=== PATIENT | male | born 1980 | race Caucasian/White ===

== ENCOUNTER 2017-11-04 14:49 | Emergency (ER) | payer SELFPAY ==
[~2017-11-04] VITALS: Ht 180.3 cm; Wt 78.0 kg
[2017-11-04 14:57] VITALS: BP 135/75; PULSE 93; RESP 17; TEMP 97.5; O2SAT 99
[2017-11-04] MEDS ORDERED: IBUP1TAB7 PO (15:15)
[2017-11-04] MEDS ORDERED: PENI500T PO (15:15)
[2017-11-04] MEDS ORDERED: MAGICADU2 SWISH-SPIT (15:15)
--- NOTE | 2017-11-04 15:19 | PD ---
HPI Chief Complaint: Oral / Dental Pain or Problem Time Seen by Provider: 15:02 Travel History International Travel<30 days: No Contact w/Intl Traveler<30days: No Traveled to known affect area: No History of Present Illness HPI 37-year-old male presents emergency department with pain in the left lower jaw for the past several days. He has had dental issues in the past and this is similar. He has increased pain and swelling under the left first lower molar. This is been ongoing for the 4 days. He has been taking ddlj-vzv-wkvplut medications without improvement. Pain is worsened with pain extending into the ear and cheek. He denies difficulty swallowing. No fever, chills, or drainage. Pain is currently 8 out of 10. He has no known drug allergies. PFSH Past Medical History Medical History: Denies Significant Hx Diminished Hearing: No Respiratory: Yes Immunizations Current: Yes Past Surgical History Surgical History: No Previous Surgery Social History Alcohol Use: Yes (Daily) Tobacco Use: Yes (1 pdd) Substance Use: No Allergies-Medications (Allergen,Severity, Reaction): Coded Allergies: No Known Allergies (Unverified Adverse Reaction, Unknown, 11/04/17) Per pt. Reported Meds & Prescriptions Reported Meds & Active Scripts Active Magic Mouthwash Adult Liq (Multi-Ingredient Mouthwash/Gargle) 120 Ml Susp 10 Ml SWISH-SPIT Q2HR Each 5mL contains: Nystatin 200,000units, Diphenhydramine 4.25mg, Viscous Lidocaine 10mg, [place] syrup 0.8 mL Penicillin V Potassium 500 Mg Tab 500 Mg PO Q6H 10 Days Ibuprofen 800 Mg Tab 800 Mg PO Q8H PRN Review of Systems Except as stated in HPI: all other systems reviewed are Neg General / Constitutional: No: Fever Eyes: No: Visual changes HENT: Positive: Dental Difficulties, Earache, No: Headaches, Vertigo, Lightheadedness, Sore Throat, Rhinitis, Rhinorrhea, Congestion, Nosebleed, Neck Stiffness, Neck Pain Cardiovascular: No: Chest Pain or Discomfort Respiratory: No: Shortness of Breath Gastrointestinal: No: Abdominal Pain Genitourinary: No: Dysuria Musculoskeletal: No: Pain Skin: No Rash Neurologic: No: Weakness Psychiatric: No: Depression Endocrine: No: Polydipsia Hematologic/Lymphatic: No: Easy Bruising Physical Exam Narrative GENERAL: Patient appears in mild distress per SKIN: Warm and dry. Normal color. Normal turgor. No rash. HEAD: Atraumatic. Normocephalic. EYES: Pupils equal and round. No scleral icterus. No injection or drainage. ENT: No nasal bleeding or discharge. Mucous membranes pink and moist. TMs are clear bilaterally. Teeth are in poor repair with localized pain and tenderness at the base of the first molar on the left lower jaw. No major abscesses noted. No Jl's angina. Pharynx is clear. Airways patent. NECK: Trachea midline. Supple and nontender without significant lymphadenopathy. CARDIOVASCULAR: Regular rate and rhythm. RESPIRATORY: No accessory muscle use. Clear to auscultation. Breath sounds equal bilaterally. MUSCULOSKELETAL: Extremities without clubbing, cyanosis, or edema. No obvious deformities. NEUROLOGICAL: Awake and alert. No obvious cranial nerve deficits. Motor grossly within normal limits. Five out of 5 muscle strength in the arms and legs. Normal speech. PSYCHIATRIC: Appropriate mood and affect; insight and judgment normal. Data Data Last Documented VS Vital Signs Date Time Temp Pulse Resp B/P (MAP) Pulse Ox O2 Delivery O2 Flow Rate FiO2 11/04/17 14:57 97.5 93 17 135/75 (95) 99 MDM Medical Decision Making Medical Screen Exam Complete: Yes Emergency Medical Condition: Yes Differential Diagnosis Dental caries. Dental abscess. Dental pain Narrative Course Patient is given Pen-Vee K 500 mg 4 times daily 10 days. Patient is given ibuprofen 800 mg 3 times daily with food #30. Patient is given Magic mouthwash to be used every 2 hours as needed #120 mL's. Dental resource information is given to the patient for follow-up. Diagnosis Primary Impression: Dental abscess Referrals: Dentist Patient Instructions: Dental Abscess (ED), General Instructions Additional Instructions: Patient is given Pen-Vee K 500 mg 4 times daily 10 days. Patient is given ibuprofen 800 mg 3 times daily with food #30. Patient is given Magic mouthwash to be used every 2 hours as needed #120 mL's. Dental resource information is given to the patient for follow-up. Med/Other Pt SpecificInfo: Prescription(s) given Scripts Efijwyfc-Htynsciaxhmufgt-Qojgopsko Liq (Magic Mouthwash Adult Liq) 120 Ml Susp 10 ML SWISH-SPIT Q2HR for Mouth sores, #120 ML 0 Refills Each 5mL contains: Nystatin 200,000units, Diphenhydramine 4.25mg, Viscous Lidocaine 10mg, [place] syrup 0.8 mL Prov: Migue Nixon MD 11/04/17 Penicillin V Potassium (Penicillin V Potassium) 500 Mg Tab 500 MG PO Q6H for Infection for 10 Days, #40 TAB 0 Refills Prov: Migue Nixon MD 11/04/17 Ibuprofen (Ibuprofen) 800 Mg Tab 800 MG PO Q8H Y for Pain/Inflammation, #30 TAB 0 Refills Prov: Migue Nixon MD 11/04/17 Disposition: 01 DISCHARGE HOME Condition: Stable Chris Martin Nov 04, 2017 15:19
== END 2017-11-04 15:33 | disposition home or self-care (01) ==
LOC: NEPK 14:49
DX: K04.7 Periapical abscess without sinus (principal); F17.200 Nicotine dependence, unspecified, uncomplicated
CPT/HCPCS: 99283